=== PATIENT | male | born 2000 | race African-American/Black ===

== ENCOUNTER 2021-07-09 19:06 | Emergency (ER) | payer SELFPAY ==
[~2021-07-09] VITALS: Ht 162.6 cm; Wt 82.0 kg
[2021-07-09 19:13] VITALS: BP 148/96
== END 2021-07-09 21:07 | disposition left against medical advice (07) ==
LOC: ER 19:06
DX: M79.669 Pain in unspecified lower leg (principal); Z53.21 Procedure and treatment not carried out due to patient leaving prior to being seen by health care provider